=== PATIENT | male | born 1955 | race Caucasian/White ===

== ENCOUNTER → 2018-12-03 | Outpatient (CLI) | payer BC ==
--- NOTE | 2018-12-03 16:53 | PCVCIMAG ---
APPROVED REPORT Study performed: 12/03/2018 14:57:48 Exam: Stress Echocardiogram Indication: Abnormal ekg Patient Location: Echo lab Stress Nurse: Jeanne Yao RN Status: routine Ht: 5 ft 10 in HR: 62 bpm BP: 100/70 mmHg Rhythm: NSR Medical History Medical History: Hyperlipidemia Exercise History: Physically active Procedure The patient underwent an Exercise Stress Test using the Livan Protocol. Blood pressure, heart rate, and EKG were monitored. An Echocardiogram was performed by slot technician in four stages in quad fashion. At peak stress, four selected images were obtained and placed side by side with resting images for comparison. Stress Test Details Stress Test: Exercise stress testing was performed using a Livan protocol. HR Resting HR: 62 bpmMax Heart Rate (APMHR): 159 bpm Max HR Achieved: 133 bpmTarget HR (85% APMHR): 135 bpm % of APMHR: 83 Recovery HR: 93 bpm HR response to stress: Normal HR response to stress BP Resting BP: 100/70 mmHg Max BP: 146/70 mmHg Recovery BP: 124/60 mmHg BP response to stress: Normal blood pressure response to stress. ECG Resting ECG: Sinus Rhythm Stress ECG: Sinus Rhythm ST Change: Upsloping ST depression Maximum ST Deviation: 1 mm Arrhythmia: None Recovery ECG: Sinus Rhythm Recovery ST Change: Normal Recovery ST Deviation: 0 mm Recovery Arrhythmia: None Clinical Reason for Termination: Maximal effort, Dyspnea Exercise duration: 10 min 10 sec Highest Stage Achieved: Stage 3: 3.4 mph at 14% grade. Exercise capacity: 13.40 METs Overall Exercise Capacity for Age: Normal Angina Score: Non-Limiting Stress ECG Conclusion Abnormal exercise ECG with clinical and ECG evidence for stress-induced myocardial ischemia. [place] Treadmill Score is 1.0 which is Moderate risk. Pre-Stress Echo The resting Echocardiogram showed normal left ventricular contractility with an estimated Ejection Fraction of about >55%. Normal wall motion in all segments on baseline images. Post-Stress Echo The stress Echocardiogram showed normal left ventricular contractility with an estimated Ejection Fraction of about 60%. The stress Echocardiogram demonstrated wall motion abnormality in the inferior wall . Clinical No clinical or ECG evidence for ischemia. Conclusion Clinical Response: Equivocal Exercise Capacity: Average Stress ECG Response: Ischemic Stress Echo Images: Ischemic Abnormal stress echocardiogram with maximal exercise stress. Other Information Study Quality: Adequate <Conclusion> Abnormal stress echocardiogram with maximal exercise stress.
== END | disposition home or self-care (01) ==
LOC: PCVCIMAG 15:09
PROVIDERS: ATTEND Internal Medicine
DX: R94.31 Abnormal electrocardiogram [ECG] [EKG] (principal); E78.5 Hyperlipidemia, unspecified; R73.02 Impaired glucose tolerance (oral); I25.10 Atherosclerotic heart disease of native coronary artery without angina pectoris; R06.02 Shortness of breath
CPT/HCPCS: 93325; 93351